=== PATIENT | male | born 1965 | race Caucasian/White ===

== ENCOUNTER 2019-02-08 08:55 | Inpatient (IN) | payer MEDICARE, MEDICAID ==
[2019-02-08] MEDS ORDERED: LORazepam 2 MG TABLET PO PRN (12:00)
[2019-02-08] MEDS ORDERED: HALOPERIDOL 5 MG TABLET PO PRN (12:00)
[2019-02-08] MEDS ORDERED: ZOLPIDEM TARTRATE 10 MG TABLET PO PRN (12:00)
[2019-02-08 12:31] VITALS: BP 117/73
[2019-02-08 12:41] VITALS: BP 117/73
[2019-02-08] MEDS ORDERED: DIVA-78 PO (14:09)
[2019-02-08] MEDS ORDERED: TRAZ-220 PO (14:09)
[2019-02-08] MEDS ORDERED: ARIP15TA2 PO (14:09)
[2019-02-08] MEDS ORDERED: CLOZ100 PO (14:09)
[2019-02-08] MEDS ORDERED: DULO30CA2 PO (14:13)
[2019-02-08] MEDS ORDERED: NICOTINE 14 MG/24 HOUR PATCH TD PRN (14:45)
[2019-02-08] MEDS ORDERED: ALBUTEROL SULFATE HFA 90 MCG/PUFF 8 GM INHALER IH PRN (14:45)
[2019-02-08] MEDS ORDERED: MAGNESIUM HYDROXIDE SUSPENSION 30 ML UDCUP PO PRN (14:45)
[2019-02-08] MEDS ORDERED: CloNIDine HCL 0.1 MG TABLET PO PRN (14:45)
[2019-02-08] MEDS ORDERED: DOCUSATE SODIUM 100 MG CAPSULE PO PRN (14:45)
[2019-02-08] MEDS ORDERED: MAG HYDROX/AL HYDROX/SIMETH ES 30 ML SUSPENSION UDCUP PO PRN (14:45)
[2019-02-08] MEDS ORDERED: ACETAMINOPHEN 325 MG TABLET PO PRN (14:45)
[2019-02-08] MEDS ORDERED: IBUPROFEN 400 MG TABLET PO PRN (14:45)
[2019-02-08] MEDS ORDERED: LOPERAMIDE HCL 2 MG CAPSULE PO PRN (14:45)
[2019-02-08] MEDS ORDERED: PETROLATUM,WHITE 28 GM JELLY TP PRN (14:45)
[2019-02-08] MEDS ORDERED: GuaiFENesin/D-METHORPHAN [SUGAR-FREE] 200-20MG/10 ML SYRUP UDCUP PO PRN (14:45)
[2019-02-08] MEDS ORDERED: ONDANSETRON HCL 4 MG TABLET PO PRN (14:45)
[2019-02-08] MEDS: DIVALPROEX SODIUM 500 MG DR TABLET PO SCH (16:38)
[2019-02-08 18:20] VITALS: BP 110/58
[2019-02-08] MEDS: TraZODone HCL 100 MG TABLET PO SCH (20:26)
[2019-02-08] MEDS ORDERED: CloZAPine 100 MG TABLET PO ONE (21:00)
[2019-02-09 08:38] LABS: BASOPHILS % (AUTO) 0.3 % (0.0-2.0); EOSINOPHILS % (AUTO) 0.1 % (1.0-6.0); HEMATOCRIT 49.2 % (41-53); HEMOGLOBIN 16.5 g/dL (13.5-17.5); LYMPHOCYTES # (AUTO) 3.7 K/uL (1.0-4.8); LYMPHOCYTES % (AUTO) 32.8 % (22.0-44.0); MEAN CORPUSCULAR HGB CONC 33.5 G/dL (31.0-37.0); MEAN CORPUSCULAR VOLUME 83 fL (80-100); MONOCYTES # (AUTO) 0.9 K/uL (0.1-1.0); NEUTROPHILS # (AUTO) 6.7 K/uL (1.8-7.7); NEUTROPHILS % (AUTO) 58.8 % (40.0-70.0); PLATELET COUNT (AUTO) 227 K/uL (150-450); RED CELL DISTRIBUTION WIDTH 16.2 % (11.5-14.5)
[2019-02-09] MEDS: ARIPiprazole 15 MG TABLET PO SCH (08:40)
[2019-02-09] MEDS: DIVALPROEX SODIUM 500 MG DR TABLET PO SCH ×2 (08:40→16:02)
[2019-02-09] MEDS: DULoxetine HCL 30 MG CAPSULE PO SCH (08:41)
[2019-02-09 08:52] LABS: HEMOGLOBIN A1C 5.6 % (4.5-6.2)
[2019-02-09 09:08] LABS: ALANINE AMINOTRANSFERASE 60 U/L (12-78); ALBUMIN 4.5 g/dL (3.4-5.0); ALKALINE PHOSPHATASE 108 U/L (46-116); ANION GAP 8 mmol/L (8-16); ASPARTATE AMINOTRANSFERASE 38 U/L (15-37); BILIRUBIN,TOTAL 0.9 mg/dL (0.1-1.0); CALCIUM, TOTAL 9.3 mg/dL (8.8-10.5); CARBON DIOXIDE 29 mmol/L (22-29); CHLORIDE 91 mmol/L (98-107); CHOL/HDL RATIO 2.6 (4.2-7.3); CHOLESTEROL 128 mg/dL (131-200); CREATININE 0.98 mg/dL (0.60-1.30); GLOMERULAR FILTR. RATE CALC > 60 mL/min (>60); GLUCOSE,RANDOM 113 mg/dL (70-110); HDL CHOLESTEROL 49 mg/dL (40-60); LDL CHOL (CALC.) 59 mg/dL (0-130); POTASSIUM 4.1 mmol/L (3.5-5.1); SODIUM SERUM 128 mmol/L (136-145); THYROID STIMULATING HORMONE 1.92 uIU/mL (0.36-3.74); TOTAL PROTEIN, SERUM 8.9 g/dL (6.4-8.2); TRIGLYCERIDES 99 mg/dL (15-150); UREA NITROGEN, BLOOD 12 mg/dL (7-18)
[2019-02-09 09:44] VITALS: BP 142/74
[2019-02-09 16:00] VITALS: BP 134/92
[2019-02-09] MEDS ORDERED: BISACODYL 5 MG EC TABLET PO PRN (18:00)
[2019-02-09] MEDS: TraZODone HCL 100 MG TABLET PO SCH (20:22)
[2019-02-09] MEDS: CloZAPine 100 MG TABLET PO SCH (20:23)
[2019-02-10 05:13] VITALS: BP 134/89
[2019-02-10 08:00] LABS: ANION GAP 8 mmol/L (8-16); CALCIUM, TOTAL 8.9 mg/dL (8.8-10.5); CARBON DIOXIDE 27 mmol/L (22-29); CHLORIDE 95 mmol/L (98-107); CREATININE 0.95 mg/dL (0.60-1.30); GLOMERULAR FILTR. RATE CALC > 60 mL/min (>60); GLUCOSE,RANDOM 116 mg/dL (70-110); POTASSIUM 4.8 mmol/L (3.5-5.1); SODIUM SERUM 130 mmol/L (136-145); UREA NITROGEN, BLOOD 12 mg/dL (7-18)
[2019-02-10] MEDS: DULoxetine HCL 30 MG CAPSULE PO SCH (08:04)
[2019-02-10] MEDS: DIVALPROEX SODIUM 500 MG DR TABLET PO SCH ×2 (08:04→16:41)
[2019-02-10] MEDS: ARIPiprazole 15 MG TABLET PO SCH (08:05)
[2019-02-10 08:30] VITALS: BP 132/83
[2019-02-10] MEDS: TraZODone HCL 100 MG TABLET PO SCH (20:04)
[2019-02-10] MEDS: CloZAPine 100 MG TABLET PO SCH (20:04)
[2019-02-10 22:32] VITALS: BP 137/91
[2019-02-11 02:59] VITALS: BP 129/88
[2019-02-11] MEDS: ARIPiprazole 15 MG TABLET PO SCH (07:52)
[2019-02-11] MEDS: DIVALPROEX SODIUM 500 MG DR TABLET PO SCH ×2 (07:53→16:17)
[2019-02-11] MEDS: DULoxetine HCL 30 MG CAPSULE PO SCH (07:53)
[2019-02-11 08:30] VITALS: BP 136/86
[2019-02-11 19:46] VITALS: BP 134/89
[2019-02-11] MEDS: CloZAPine 100 MG TABLET PO SCH (21:00)
[2019-02-11] MEDS: TraZODone HCL 100 MG TABLET PO SCH (21:00)
[2019-02-12 03:12] VITALS: BP 129/94
[2019-02-12] MEDS: ARIPiprazole 15 MG TABLET PO SCH (08:05)
[2019-02-12] MEDS: DIVALPROEX SODIUM 500 MG DR TABLET PO SCH ×2 (08:05→16:17)
[2019-02-12] MEDS: DULoxetine HCL 30 MG CAPSULE PO SCH (08:05)
[2019-02-12 08:37] VITALS: BP 129/93
[2019-02-12 17:05] VITALS: BP 136/84
[2019-02-12] MEDS: TraZODone HCL 100 MG TABLET PO SCH (20:46)
[2019-02-12] MEDS: CloZAPine 100 MG TABLET PO SCH (20:46)
[2019-02-13 04:56] VITALS: BP 137/82
[2019-02-13 08:00] VITALS: BP 136/67
[2019-02-13] MEDS: DULoxetine HCL 30 MG CAPSULE PO SCH (08:11)
[2019-02-13] MEDS: ARIPiprazole 15 MG TABLET PO SCH (08:11)
[2019-02-13] MEDS: DIVALPROEX SODIUM 500 MG DR TABLET PO SCH (08:12)
== END 2019-02-13 13:00 | disposition home or self-care (01) | DRG 885 ==
LOC: 3EX 10:35
PROVIDERS: ADMIT Psychiatry & Neurology Child & Adolescent Psychiatry; ATTEND Psychiatry & Neurology Child & Adolescent Psychiatry
DX: F20.0 Paranoid schizophrenia (principal); E87.1 Hypo-osmolality and hyponatremia; D72.829 Elevated white blood cell count, unspecified; E78.00 Pure hypercholesterolemia, unspecified; R74.0 Nonspecific elevation of levels of transaminase and lactic acid dehydrogenase [LDH]; F19.10 Other psychoactive substance abuse, uncomplicated; F17.200 Nicotine dependence, unspecified, uncomplicated; F32.9 Major depressive disorder, single episode, unspecified; I10 Essential (primary) hypertension; J44.9 Chronic obstructive pulmonary disease, unspecified; R73.9 Hyperglycemia, unspecified
CPT/HCPCS: 83036; 84443; G0378

== ENCOUNTER 2019-08-31 05:52 | Day surgery (SDC) | payer MEDICARE, OTHER ==
[~2019-08-31] VITALS: Ht 175.3 cm; Wt 85.5 kg
[~2019-08-31 05:52] MED LIST: ARIP15TA2 PO; CLOZ100T32 PO; DIVA-78 PO; DULO30CA2 PO; SODIUM CHLORIDE 0.9% 1,000 ML ONE; TRAZ-257 PO
[2019-08-31] MEDS ORDERED: LIDOCAINE 4% 50 ML SOLUTION TP ONE (05:53)
[2019-08-31] MEDS ORDERED: BENZOCAINE 20% 50 MCG/SPRAY 57 GM TP ONE (05:53)
[2019-08-31] MEDS ORDERED: ALBUTEROL SULFATE 2.5 MG/0.5 ML NEB SOLUTION NEB ONE (05:53)
[2019-08-31] MEDS ORDERED: LIDOCAINE 2% 30 ML JELLY TP ONE (05:53)
[2019-08-31] MEDS ORDERED: SODIUM CHLORIDE 0.9% 1,000 ML IV ONE (07:00)
[2019-08-31] MEDS ORDERED: MONT10TA21 PO (07:26)
[2019-08-31] MEDS ORDERED: LORA-1000 PO (07:26)
[2019-08-31] MEDS ORDERED: BENZ100C68 PO (07:26)
[2019-08-31] MEDS ORDERED: MELA3TAB82 PO (07:26)
[2019-08-31] MEDS ORDERED: CETI-450 PO (07:26)
[2019-08-31] MEDS ORDERED: FLUT1AER IH (07:26)
[2019-08-31] MEDS ORDERED: LISI-661 PO (07:26)
[2019-08-31] MEDS ORDERED: LACT30L PO (07:26)
[2019-08-31] MEDS ORDERED: ALBU8.5H8 IH (07:26)
[2019-08-31] MEDS ORDERED: HYD50 PO (07:26)
[2019-08-31] MEDS ORDERED: IPRA4AER IH (07:26)
[2019-08-31] MEDS ORDERED: DOCU-275 PO (07:26)
[2019-08-31] MEDS ORDERED: FLUT100D2 IH (07:26)
[2019-08-31] MEDS ORDERED: OMEP20 PO (07:26)
[2019-08-31] MEDS ORDERED: METO25 PO (07:26)
[2019-08-31] MEDS ORDERED: FLUT44HFA IH (07:26)
[2019-08-31] MEDS ORDERED: MIDAZOLAM HCL 2 MG/2 ML VIAL ONE (08:06)
[2019-08-31] MEDS ORDERED: FentaNYL CITRATE-PF 100 MCG/2 ML VIAL ONE (08:06)
[2019-08-31] MEDS ORDERED: MethylPREDNISolone SOD SUCC 125 MG/2 ML VIAL ONE (09:00)
[2019-08-31] MEDS ORDERED: MethylPREDNISolone SOD SUCC 125 MG/2 ML VIAL IVP ONE ×2 (09:00)
[2019-08-31] MEDS ORDERED: OXYGEN THERAPY IH SCH ×2 (20:00)
== END 2019-08-31 10:10 | disposition home or self-care (01) ==
LOC: SURGERY 05:52
PROVIDERS: ATTEND Internal Medicine Critical Care Medicine
DX: R05 Cough (principal); J84.9 Interstitial pulmonary disease, unspecified; J34.89 Other specified disorders of nose and nasal sinuses; J98.8 Other specified respiratory disorders; J38.4 Edema of larynx; B37.0 Candidal stomatitis; Z11.59 Encounter for screening for other viral diseases
CPT/HCPCS: 31623; 31624; 71045; 87015; 87070; 87077; 87101; 87205; 87206; 87220; 87635; 88108; 88312; J2250; J2930; J3010; J7030